=== PATIENT | female | born 1980 ===

== ENCOUNTER 2018-11-26 01:39 | Observation (INO) ==
[2018-11-26 02:46] LABS: Basophils % 0.2 %; Eosinophils # 0.6 K/mcL (0.0-0.6); Eosinophils % 4.7 %; Hematocrit 36.2 % (35.3-44.9); Hemoglobin 11.9 g/dL (11.5-15.4); Immature Granulocytes % 0.5 % (0-4); Lymphocytes # 4.4 K/mcL (0.6-4.6); Lymphocytes % 37.1 %; Mean Corpuscular HGB Conc 32.9 g/dL (31.6-35.5); Mean Corpuscular Hemoglobin 29.7 pg (28.0-33.3); Mean Corpuscular Volume 90.3 fL (83.0-100.0); Mean Platelet Volume 9.3 fL (9.4-12.4); Monocytes # 0.9 K/mcL (0.0-1.3); Monocytes % 7.9 %; Neutrophils # 5.9 K/mcL (1.6-8.9); Platelet Count 388 K/mcL (140-400); Red Blood Count 4.01 M/mcL (3.82-4.97); Red Cell Distribution Width 12.9 % (11.5-14.5); Segmented Neutrophils % 49.6 %
[2018-11-26 03:12] LABS: Alanine Aminotransferase 17 Units/L (7-52); Albumin 4.1 g/dL (3.5-5.7); Albumin/Globulin Ratio 1.5 (1.1-2.2); Alkaline Phosphatase 99 Units/L (34-104); Aspartate Amino Transferase 21 Units/L (13-39); BUN/Creatinine Ratio 13 (6-26); Bilirubin,Total 0.2 mg/dL (0.3-1.0); Blood Urea Nitrogen 7 mg/dL (6-20); Calcium 8.8 mg/dL (8.6-10.3); Carbon Dioxide 24 mEq/L (23-29); Chloride 102 mEq/L (98-107); Globulin 2.8 g/dL (2.4-3.5); Glucose 110 mg/dL (70-105); Osmolality,Calculated 281 (280-300); Potassium 3.6 mEq/L (3.5-5.1); Sodium 136 mEq/L (136-145); Total Protein 6.9 g/dL (6.4-8.9); Troponin I < 0.03 ng/mL (< 0.04); eGFR For African Americans > 60 (> 60); eGFR For Non-African Americans > 60 (> 60)
[2018-11-26] MEDS ORDERED: hydrALAZINE 10 MG TABLET PO PRN (03:13)
[2018-11-26] MEDS ORDERED: Nitroglycerin 0.4 MG TAB.SUBL SL PRN (03:15)
[2018-11-26] MEDS ORDERED: *HR* OxyCODONE Immed Rel 5 MG TABLET PO PRN (03:16)
[2018-11-26] MEDS ORDERED: Acetaminophen 325 MG TABLET PO PRN (03:16)
[2018-11-26] MEDS ORDERED: Naloxone 0.4 MG/ML INJ IVP PRN (03:16)
[2018-11-26] MEDS ORDERED: *HR* Promethazine 25 MG/ML VIAL IVP PRN (03:16)
[2018-11-26] MEDS ORDERED: Ipratropium/Albuterol Neb 3 ML IH PRN ×2 (03:21→04:12)
[2018-11-26] MEDS ORDERED: tiZANidine 4 MG TABLET PO ONE ×2 (03:23→06:15)
--- NOTE | 2018-11-26 04:09 | Internal Med History&Physical ---
Date of Encounter: 11/26/18 Time of Encounter: 02:30 Internal Medicine - H&P: HPI Chief complaint: CP Admitted From: Intrahospital Transfer Plans for Post Hospital Care: Home History of present illness: Ms. Lennon is a 38 year old female w/PMH of asthma, HTN, HLD, migraines, anxiety, depression, and current tobacco abuse presents from [facility] ED with CC of CP for the past three days. Patient states that the pain has been intermittent and presents as burning in the center of her chest w/o radiation. Sx come on w/wo exertion. Associated sx: High heart rate, high blood pressure, dizziness, nausea, vomiting, diaphoresis, dizziness, headache, and SOB. Patient denies previous occurrence. No recent cardiac w/u. Patient reports she has not been feeling well for the past several days. WBC slightly elevated on admission. Patient denies recent illness, fever, chills, changes in vision, unusual bleeding, abdominal pain, diarrhea, constipation, numbness, tingling, pre- syncope, or syncope. Past Med Surg Social Fam HX - Past Medical History Source: patient, old records reviewed Medical history: asthma, hyperlipidemia, hypertension, migraine Additional medical history: chronic sinusitis. depression. lumbar DDD L4/5 L5/S1. disc protrusion L4/5. right knee arthritis Psychiatric history: anxiety, depression - Past Surgical History Surgical History: cholecystectomy, hysterectomy, sinus surgery, LOLIS/BSO, AICD Additional surgical history: Right Knee Scope. Back - Social History Smoking Status: Current every day smoker Packs per day: 0.5 PPD Smokeless Tobacco Status: No Alcohol use: rarely Drug use: none Current living situation: Home Activity Level: Independent ambulation Recent Out of Country Travel Within the Last 8 Weeks: No Exposure or Possible Exposure to Illness During Travel: No - Family History Maternal Grandmother Race: Family Member Ethnicity: Non- Living Status: Hx Family Cancer: Yes (Thyroid) Maternal Grandfather Race: Family Member Ethnicity: Non- Living Status: Hx Family Cancer: Yes (Leukemia) Paternal Grandmother Race: Family Member Ethnicity: Non- Living Status: Hx Family Cancer: Yes (Pancreatic) Father Race: Family Member Ethnicity: Non- Living Status: Still Living Hx Family Medical Disorders: No Mother Race: Family Member Ethnicity: Non- Living Status: Still Living Hx Family Cardiac Disorders: Yes (HTN, HLD, Aortic valve replacement) Sister Race: Family Member Ethnicity: Non- Living Status: Still Living Hx Family Cardiac Disorders: Yes (HTN) Hx Family Neurologic Disorders: Yes (Migraines) Internal Medicine - H&P: Meds Lisinopril [Zestril] 20 mg PO HS 08/15/17 [History] Estradiol 2 mg PO QAM 01/16/18 [History] Cholecalciferol (Vitamin D3) [Vitamin D3] 1,000 units PO QAM 10/07/18 [History] Gabapentin [Neurontin] 300 mg PO BID 10/07/18 [History] SUMAtriptan succinate [Imitrex] 50 mg PO PRN PRN 10/07/18 [History] Trazodone HCl 100 mg PO HS 10/07/18 [History] Venlafaxine HCl [Venlafaxine HCl ER] 150 mg PO QPM 10/07/18 [History] Acetaminophen [Non-Aspirin Extra Strength] 500 mg PO Q6H PRN 7 Days #28 tablet 10/08/18 [Rx] HYDROcodone/Acet 5/325 mg [[place] 5-325 mg] 1 tab PO BID PRN 11/25/18 [History] Ipratropium/Albuterol Neb [Duoneb] 3 ml IH Q6HR PRN 11/26/18 [History] Allergy/AdvReac Type Severity Reaction Status Date / Time Banana Allergy Rash Verified 11/25/18 20:01 Sulfa (Sulfonamide Allergy Rash, Verified 11/25/18 20:01 Antibiotics) Vomiting, Headache, Blotchy skin All Systems PM: A 10-system review of systems was performed and is negative for pertinent findings except as documented above in the HPI. - Constitutional Constitutional: as per HPI, no chills, no fever(s), no night sweats - EENT Eyes: no change in vision, no discharge, no pain, no photophobia Ears: no ear discharge, no ear pain, no tinnitus Nose, mouth and throat: no dysphagia, no nasal discharge, no neck pain, no sore throat - Breasts Breasts: as per HPI - Cardiovascular Cardiovascular ROS IM: as per HPI, chest pain, diaphoresis, dyspnea, dyspnea on exertion, lightheadedness, no palpitations, no syncope - Respiratory Respiratory: as per HPI, dyspnea, dyspnea on exertion, no cough, no wheezing, no excessive phlegm production - Gastrointestinal Gastrointestinal: as per HPI, heartburn, nausea, vomiting, no abdominal pain, no diarrhea, no hematemesis, no hematochezia, no melena - Genitourinary Genitourinary: no change in urinary stream, no dysuria, no flank pain, no hematuria Menstruation: as per HPI, post hysterectomy - Musculoskeletal Musculoskeletal ROS IM: no numbness, no tingling - Integumentary Integumentary IM: no rash, no unusual bruising - Neurological Neurological ROS: as per HPI, headache(s), no confusion, no convulsions, no focal weakness, no numbness, no tingling, no tremor(s) - Psychiatric Psychiatric: as per HPI, anxiety, depression - Endocrine Endocrine IM: as per HPI - Hematologic/Lymphatic Hematologic/Lymphatic: no easy bruising - Allergic/Immunologic Allergic/Immunologic: as per HPI - Constitutional Vitals: Temp Pulse Resp BP Pulse Ox 98.3 F 96 18 145/79 94 11/26/18 03:59 11/26/18 03:59 11/26/18 03:59 11/26/18 03:59 11/26/18 03:59 General appearance: Present: cooperative, mild distress, A&O X 3, morbidly obese, pleasant, answers questions appropriately Exam: Patient examined at bedside. Patient resting in bed. Denies any chest discomfort on exam as well as any other sx or complaints. VS: 98.3F temp, HR 86, RR 14, BP 156/91, SPO2 98% on room air. - Head Head exam: Present: atraumatic, normocephalic - Eye Eye exam: Present: PERRL, conjuntiva pink, sclera anicteric Pupils: Present: PERRL - ENT ENT exam: Present: normal exam - Neck Neck exam general surgery: Present: normal inspection, supple, trachea midline. Absent: lymphadenopathy - Respiratory Respiratory exam: Present: CTAB. Absent: accessory muscle use, rales, rhonchi, wheezes - Cardiovascular Cardiovascular exam: Present: RRR, +S1, +S2. Absent: diastolic murmur, gallop, rubs, systolic murmur - GI/Abdominal GI/Abdominal exam: Present: normal bowel sounds, soft, no peritoneal signs. Absent: distended, tenderness - Rectal Rectal exam: Present: deferred - Additional comments: exam deferred. - Extremities Exam Extremities exam: Present: warm, radial pulses palpable and symmetrical. Absent: calf tenderness, cyanotic, pedal edema - Back Exam Back exam: Present: normal inspection - Neurological Exam Neurological exam: Present: alert, CN II-XII intact, oriented X3, no focal deficits. Absent: pronater drift, facial droop, speech deficit - Psychiatric Psychiatric exam: Present: normal affect, normal mood - Skin Skin exam: Present: dry, intact Internal Med - H&P Results - Labs CBC & Chem 7: 11/26/18 02:35 11/26/18 02:08 Labs: Short CBC 11/26/18 Range/Units 02:35 WBC 12.0 H (4.3-11.1) K/mcL Hgb 11.9 (11.5-15.4) g/dL Hct 36.2 (35.3-44.9) % Plt Count 388 (140-400) K/mcL Neutrophils # 5.9 (1.6-8.9) K/mcL BMP 11/26/18 02:08 Sodium 136 Potassium 3.6 Chloride 102 Carbon Dioxide 24 BUN 7 Creatinine 0.54 L Glucose 110 H Calcium 8.8 Cardiac Enzymes 11/26/18 Range/Units 02:08 Troponin I < 0.03 (< 0.04) ng/mL Liver Function 11/26/18 Range/Units 02:08 Total Bilirubin 0.2 L (0.3-1.0) mg/dL AST 21 (13-39) Units/L ALT 17 (7-52) Units/L Alkaline Phosphatase 99 (34-104) Units/L Albumin 4.1 (3.5-5.7) g/dL - Diagnostic Studies Chest x-ray Additional comments: EXAMINATION: ONE XRAY VIEW OF THE CHEST 11/25/2018 8:33 pm COMPARISON: October 08, 2018 HISTORY: ORDERING SYSTEM PROVIDED HISTORY: chest pain FINDINGS: The lungs are clear there is no infiltrate effusion or pneumothorax. The cardiac silhouette is normal. There are no bony abnormalities seen. XR/XR chest 1V portable IMPRESSION: Normal chest x-ray D/ / Adarsh Butler MD / Adarsh Butler MD Interpreting Provider: Adarsh Butler MD CT scan - chest Additional comments: EXAMINATION: CTA OF THE CHEST 11/25/2018 9:23 pm TECHNIQUE: CTA of the chest was performed after the administration of intravenous contrast. Multiplanar reformatted images are provided for review. MIP images are provided for review. Dose modulation, iterative reconstruction, and/or weight based adjustment of the mA/kV was utilized to reduce the radiation dose to as low as reasonably achievable. COMPARISON: Chest radiograph 11/25/2018. HISTORY: ORDERING SYSTEM PROVIDED HISTORY: CP 75 ml of Isovue 370 Initial encounter. FINDINGS: Pulmonary Arteries: The main pulmonary artery is normal in caliber. The pulmonary arteries are adequately opacified for evaluation. No pulmonary embolism. Mediastinum: The thoracic aorta is normal in caliber with mild atherosclerotic vascular disease. The coronary arteries and branch vessels of the superior mediastinum and lower neck are unremarkable. The heart is normal in size. No pericardial effusion. The mediastinal esophagus and visualized portions of the thyroid gland are unremarkable. No lymphadenopathy. Lungs/pleura: The central airways are patent. No pleural effusion or pneumothorax. No consolidation or interlobular septal thickening. Upper Abdomen: Diffuse hepatic steatosis. Status post cholecystectomy. Limited images through the upper abdomen demonstrate no acute process. Soft Tissues/Bones: No acute bone or soft tissue abnormality. CT/CT angio chest IMPRESSION: 1. No evidence of pulmonary embolism or other acute process in the chest. 2. Diffuse hepatic steatosis. D/ / Jan Ling MD / Jan Ling MD Interpreting Provider: Jan Ling MD - Assessment and Plan (1) Chest pain Current Visit: Yes Status: Acute Assessment and plan: Acute CP for the past three days. Patient states that the pain has been intermittent and presents as burning in the center of her chest w/o radiation. Sx come on w/wo exertion. Associated sx: High heart rate, high blood pressure, dizziness, nausea, vomiting, diaphoresis, dizziness, headache, and SOB. Patient denies previous occurrence. No recent cardiac w/u. Patient reports she has not been feeling well for the past several days. 324 mg ASA in [place] ED. SL nitro PRN. 80 mg Lipitor ONCE. Initial troponin <0.03. Trending. Echocardiogram. NPO now. Nuclear stress test ordered for a.m. if troponins remain WNL. Consider Cardiology consult if troponins, Echocardiogram, and/or stress test results abnormal. Patient is high risk for cardiac event d/t current unstable angina for three days, familial hx of cardiac disease (mother), no recent cardiac w/u requiring Echocardiogram and nuclear stress tests; and current risk factors of HLD, HTN, current tobacco abuse, and morbid obesity. Observation. Qualifiers: Chest pain type: other chest pain Qualified Code(s): R07.89 - Other chest pain; R07.8 - Other chest pain (2) Elevated d-dimer Current Visit: Yes Status: Acute Assessment and plan: Acutely elevated D-dimer of 1032 at [place] [facility]. CTA of the chest negative for PE. Bilateral Dopplers of the LEs ordered to r/o DVT(s). Heparin SQ for DVT prophylaxis. (3) Leukocytosis Current Visit: Yes Status: Acute Assessment and plan: Acute and mild leukocytosis. Likely reactive as there is no identifiable infection source. Stat U/A w/reflex micro and culture and stat respiratory infection panel ordered. Monitor pt. and f/u labs. Qualifiers: Leukocytosis type: unspecified Qualified Code(s): D72.829 - Elevated white blood cell count, unspecified (4) HTN (hypertension) Current Visit: Yes Status: Chronic Assessment and plan: Hx of chronic HTN. Monitor pt. and VS. Continue pts. Lisinopril. Qualifiers: Hypertension type: essential hypertension Qualified Code(s): I10 - Essential (primary) hypertension (5) HLD (hyperlipidemia) Current Visit: Yes Status: Chronic Assessment and plan: Hx of chronic HLD. Lipid panel ordered. Patient does not currently take a statin. Consider adding a statin based on panel results if warranted. Qualifiers: Hyperlipidemia type: pure hypercholesterolemia Qualified Code(s): E78.00 - Pure hypercholesterolemia, unspecified; E78.0 - Pure hypercholesterolemia (6) Migraines Current Visit: Yes Status: Chronic Assessment and plan: Hx of chronic migraines. Continue patient's Imitrex 50 mg by mouth when necessary. Qualifiers: Migraine type: without aura Status migrainosus presence: without status migrainosus Intractability: not intractable Qualified Code(s): G43.009 - Migraine without aura, not intractable, without status migrainosus (7) Asthma Current Visit: Yes Status: Chronic Assessment and plan: Hx of chronic intermittent asthma. Continue patient's DuoNeb's when necessary. Supplemental O2 with titration and SPO2 monitoring. Qualifiers: Asthma severity: mild Asthma persistence: intermittent Asthma complication type: unspecified Qualified Code(s): J45.20 - Mild intermittent asthma, uncomplicated (8) Anxiety and depression Current Visit: Yes Status: Chronic Assessment and plan: Hx of chronic anxiety and depression. Continue patient's trazodone and venlafaxine. (9) Tobacco dependence Current Visit: Yes Status: Chronic Assessment and plan: Hx of chronic tobacco abuse. Pt. reports she currently smokes 1/2 PPD. Denies need for nicotine patch. (10) DVT prophylaxis Current Visit: Yes Status: Acute Assessment and plan: Heparin SQ 5,000 units Q8HR for DVT prophylaxis. - Time Spent With Patient Total time spent is greater than 50% in coordination of care (as documented) at patient's floor/unit and/or counseling patient: Greater than 35 minutes
[2018-11-26 04:32] LABS: Adenovirus Not Detected (Not Detect); Bordetella Pertussis Not Detected (Not Detect); Chlamydophila pneumoniae Not Detected (Not Detect); Coronavirus 229E Not Detected (Not Detect); Coronavirus HKU1 Not Detected (Not Detect); Coronavirus NL63 Not Detected (Not Detect); Coronavirus OC43 Not Detected (Not Detect); Human Metapneumovirus Not Detected (Not Detect); Human Rhinovirus/Enterovirus Not Detected (Not Detect); Influenza A Subtype 2009 H1 Not Detected (Not Detect); Influenza A Untypeable Not Detected (Not Detect); Influenza B Not Detected (Not Detect); Mycoplasma pneumoniae Not Detected (Not Detect); Parainfluenza Virus 1 Not Detected (Not Detect); Parainfluenza Virus 2 Not Detected (Not Detect); Parainfluenza Virus 3 Not Detected (Not Detect); Parainfluenza Virus 4 Not Detected (Not Detect); Respiratory Syncytial Virus Not Detected (Not Detect)
[2018-11-26] MEDS ORDERED: Regadenoson 0.4 MG/5 ML SYRINGE IVP ONE (06:14)
--- NOTE | 2018-11-26 10:32 | Event Note ---
<Celso Garner - Last Filed: 11/26/18 13:47> Date of Encounter: 11/26/18 Time of Encounter: 10:10 HPI: Pt is 38 year old female AOx3 in no acute distress. Patient has been having 3 days of intermittent chest pain described as burning in the center of the chest. Reports the pain is worse than her usual indigestion, and associated with diaphoresis, nausea, tachycardia, cough and SOB. Chest pain is not present at this time. Denies any fever, chills, sore throat, constipation, diarrhea, vomiti ng, wheezing, painful urination, increased frequency, or LE edema. Physical Exam: Gen: AOx3 Eyes:SAVANAH with EOMI sruthi. No evidence of conjunctiva or scleral icterus. Throat: Mucous membranes moist and pink. No pharyngeal erythema or tonsilar exudate. Mouth without any sores. CV: RRR with no murmurs Resp: CTA in all lung solitario with no rhales, wheeze Abdomen: Ext: Tenderness in right LE with over lying scab, pain likely due to trauma. DP 2/4 sruthi with no LE edema Neuro:CN II-XII with no focal deficits. Strength 4/5 in upper and lower extremity. Derm: Assessment and Plan 1.) Chest pain -Acute CP for the past three days. Patient is high risk for cardiac event d/t current unstable angina for three days, familial hx of cardiac disease (mother), current risk factors of HLD, HTN, VELASQUEZ, estradiol and current tobacco abuse, and morbid obesity. -Nuclear stress test performed 11/26. Plan: -Consider Cardiology consult if stress test results abnormal. - Echocardiogram ordered -Patient non compliant with home CPAP, will require follow up on discharge 2.) Elevated D dimer -Acutely elevated D-dimer of 1032 at [facility] ED -risk factors of estradiol raise concern for clotting. -CTA of the chest negative for PE. -Bilateral Doppler of the LEs preliminary report negative. Plan: -Heparin SQ for DVT prophylaxis. -continue to check LE for signs of DVT - Await official doppler report 3.) Leukocytosis -Acute and mild leukocytosis. Likely reactive as there is no identifiable infection source. -U/A w/reflex micro and culture and respiratory infection panel negative. Plan: -Follow cbc and monitor signs of infection - U/A culture pending 4.) HTN -Hx of chronic HTN. Monitor pt. and VS. Plan -Continue Lisinopril 5.) Hyperlipidemia -Hx of chronic HLD. - Lipid panel ordered Plan -Per lipid panel May 2016 ASCVD risk recommends high intensity statin 40 mg Atorvaststin 6.) Migraine -Hx of chronic migraines. Plan: -Continue patient's Imitrex 50 mg by mouth when necessary. 7.) Asthma -Hx of chronic intermittent asthma. Plan -Continue patient's DuoNeb's when necessary. 8.) Anxiety -Hx of chronic anxiety and depression. Plan -Continue patient's trazodone and venlafaxine. 9.) Tobacco Dependence -Hx of chronic tobacco abuse. Pt. reports she currently smokes 1/2 PPD. Denies need for nicotine patch. Plan -Discuss smoking cessation and provide resources on discharge 10.) DVT Prophylaxis Plan -Heparin SQ 5,000 units Q8HR for DVT prophylaxis. <Adriana Koch - Last Filed: 11/26/18 17:24> Date of Encounter: 11/26/18 I saw evaluated and examined this patient and reviewed objective data including labs and my medical decision-making was reviewed with the medical student. I agree with the documented findings, disposition and treatment plan as described except to any changes set forth below. We independently had [id number] contact with the patient. 38 year old female with history of htn, tobacco abuse, HPL presents as a transfer from [facility] for cardiac workup. Patient complained of several day history of chest pain. EKG and initial troponin negative. D-dimer at [facility] elevated so a CTA done that was negative for PE. Patient is in no acute distress on exam, cardiac ausculation normal, lung ausculation normal. VS: reviewed, labs: reviewed. Plan for nuclear stress test and echocardiogram.
[2018-11-26] MEDS: Cholecalciferol (D-3) 1,000 UNIT (25MCG) TABLET PO SCH (10:46)
[2018-11-26] MEDS: Aspirin Enteric Coated 81 MG Tablet PO SCH (10:47)
[2018-11-26] MEDS: Gabapentin 300 MG CAPSULE PO SCH ×2 (10:47→20:35)
[2018-11-26 11:40] LABS: Troponin I < 0.03 ng/mL (< 0.04)
[2018-11-26] MEDS: *HR* HYDROcodone/Acet 5/325 mg TABLET PO PRN ×2 (13:37→20:35)
[2018-11-26 14:13] LABS: Bilirubin,Urine Negative (Negative); Blood,Urine Small (Negative); Clarity,Urine Cloudy (Clear); Color,Urine Yellow (Yellow); Glucose,Urine (UA) Normal (Normal); Ketones,Urine Negative (Negative); Leukocyte Esterase,Urine Negative (Negative); Nitrite,Urine Negative (Negative); Protein,Urine Negative (Neg-Trace); Specific Gravity,Urine 1.016 (1.010-1.025); Urobilinogen,Urine Normal (Normal)
[2018-11-26 14:15] LABS: Bacteria,Urine Moderate per hpf (None-Few); Hyaline Casts,Urine None Seen per lpf (None-Few); RBC,Urine 0-3 per hpf (0-3); Squamous Epithelial Cell,Urine Many per lpf (None-Few)
[2018-11-26 14:30] LABS: Triglycerides 184 mg/dL (< 150)
[2018-11-26 14:31] LABS: Chol/HDL Ratio 6.5 (0-4.9); Cholesterol 292 mg/dL (< 200); HDL Cholesterol 45 mg/dL (40-59); LDL Cholesterol,Calculated 210 mg/dL (0-99)
--- NOTE | 2018-11-26 14:49 | Electrocardiograph Report ---
[address] [place], [place] [address] Test Date: 2018-11-26 Pat Name: Leidy Lennon Department: 112 Room: 2A43 Gender: F [employer]nequin [employer] Maker: : 1980 Requested By: José Manuel Arriaga Order Number: [id number] Reading MD: Jan Napoles Measurements Intervals [place] Rate: 94 P: 54 NH: 187 QRS: 30 QRSD: 91 T: 39 QT: 354 QTc: 405 Interpretive Statements SINUS RHYTHM POSSIBLE LEFT ATRIAL ENLARGEMENT POOR R WAVE PROGRESSION Electronically Signed On 11-26-2018 14:47:41 EDT by Jan Napoles
[2018-11-26] MEDS ORDERED: Perflutren Lipid Microsphere 1.3 ML in 0.9 % Sodium Chloride 8.7 ML IVP ONE (14:50)
[2018-11-26] MEDS ORDERED: *HR* Metoprolol 5 MG/5 ML VIAL IVP ONE (16:38)
[2018-11-26] MEDS: *HR* Heparin 5,000 UNIT/ML VIAL SQ SCH ×2 (16:55→22:51)
[2018-11-26] MEDS ORDERED: Venlafaxine XR (24 HR) 150 MG CAP.ER.24H PO SCH (18:00)
[2018-11-26] MEDS ORDERED: *HR* Metoprolol 5 MG/5 ML VIAL IVP PRN (18:58)
[2018-11-26] MEDS ORDERED: traZODone 50 MG TABLET PO SCH (21:00)
[2018-11-26] MEDS ORDERED: Lisinopril 20 MG TABLET PO SCH (21:00)
[2018-11-27] MEDS: *HR* Heparin 5,000 UNIT/ML VIAL SQ SCH ×2 (05:46→12:52)
[2018-11-27 06:55] LABS: Basophils % 0.1 %; Eosinophils # 0.4 K/mcL (0.0-0.6); Eosinophils % 3.7 %; Hematocrit 38.5 % (35.3-44.9); Hemoglobin 12.3 g/dL (11.5-15.4); Immature Granulocytes % 0.4 % (0-4); Lymphocytes # 3.2 K/mcL (0.6-4.6); Lymphocytes % 30.9 %; Mean Corpuscular HGB Conc 31.9 g/dL (31.6-35.5); Mean Corpuscular Volume 93.9 fL (83.0-100.0); Mean Platelet Volume 9.6 fL (9.4-12.4); Monocytes # 0.7 K/mcL (0.0-1.3); Platelet Count 413 K/mcL (140-400); Segmented Neutrophils % 57.9 %; White Blood Count 10.4 K/mcL (4.3-11.1)
[2018-11-27 07:57] LABS: BUN/Creatinine Ratio 19 (6-26); Blood Urea Nitrogen 8 mg/dL (6-20); Carbon Dioxide 23 mEq/L (23-29); Chloride 104 mEq/L (98-107); Glucose 107 mg/dL (70-105); Osmolality,Calculated 287 (280-300); Potassium 4.1 mEq/L (3.5-5.1); Sodium 139 mEq/L (136-145); Thyroid Stimulating Hormone 0.976 mcIU/mL (0.340-5.600); eGFR For African Americans > 60 (> 60); eGFR For Non-African Americans > 60 (> 60)
[2018-11-27] MEDS: Gabapentin 300 MG CAPSULE PO SCH (08:35)
[2018-11-27] MEDS: Cholecalciferol (D-3) 1,000 UNIT (25MCG) TABLET PO SCH (08:35)
[2018-11-27] MEDS: Aspirin Enteric Coated 81 MG Tablet PO SCH (08:35)
[2018-11-27] MEDS: *HR* HYDROcodone/Acet 5/325 mg TABLET PO PRN (08:40)
--- NOTE | 2018-11-27 08:52 | Internal Med Progress Note ---
<Celso Garner R - Last Filed: 11/27/18 08:47> Hospitalist Progress Note - Encounter Date of Encounter: 11/27/18 Time of Encounter: 08:48 - Subjective Interval History: Pt is 38 year old female AOx3 in no acute distress. Patient has been having 3 days of intermittent chest pain described as burning in the center of the chest. Reports the pain is worse than her usual indigestion, and associated with diaphoresis, nausea, tachycardia, cough and SOB. Chest pain and associated symptoms not present during hospitalization. Denies any fever, chills, sore throat, constipation, diarrhea, vomiting, SOB, wheezing, painful urination, i ncreased frequency, or LE edema. - Exam Vitals: Temp Pulse Resp BP Pulse Ox 97.7 F 88 16 168/96 96 11/27/18 07:42 11/27/18 07:42 11/27/18 07:42 11/27/18 07:42 11/27/18 04:31 Exam: Gen: AOx3 in no acute distress Eyes:SAVANAH with EOMI sruthi. No evidence of conjunctiva or scleral icterus. Throat: Mucous membranes moist and pink. No pharyngeal erythema or tonsilar exudate. Mouth without any sores. CV: RRR with no murmurs Resp: CTA in all lung solitario with no rhales, wheeze Abdomen: soft and non-tender abdomen with no organomegally, or masses palpated Ext:Tenderness in right carrera with over lying scab, pain likely due to trauma. Pain in right knee unchanged. DP 2/4 sruthi with no LE edema. Neuro:CN II-XII with no focal deficits. Strength 4/5 in upper and lower extremity. Derm:skin warm with good turgor. No rash or erythema visualized on exam. - Assessment and Plan (1) Chest pain Current Visit: Yes Status: Acute Assessment and Plan: -Acute CP for the past three days. - Patient is high risk for cardiac event d/t current unstable angina for three days, familial hx of cardiac disease (mother), current risk factors of HLD, HTN, VELASQUEZ, estradiol, recent surgery and current tobacco abuse, and morbid obesity. - Nuclear stress test performed 11/26 - Echocardiogram performed 11/26 LVEF 60-65% Mild L ventricular dystolic dysfunction Normal R ventricular fumction No valvular dysfunction No pulmonry HTN Plan: - Patient non-compliant with home CPAP, will recquire follow up on discharge (2) Elevated d-dimer Current Visit: Yes Status: Acute Assessment and Plan: -Acutely elevated D-dimer of 1032 at [place] [facility] -risk factors of estradiol raise concern for clotting. -CTA of the chest negative for PE. -Bilateral Doppler of the LEs preliminary report negative. Plan: -Heparin SQ for DVT prophylaxis. -continue to check LE for signs of DVT - Await official doppler report (3) Leukocytosis Current Visit: Yes Status: Acute Assessment and Plan: -Acute and mild leukocytosis. Likely reactive as there is no identifiable infection source. -U/A w/reflex micro and culture and respiratory infection panel negative. -WBC down to 10.4 on 11/27 from 12.0 Plan: -Follow cbc and monitor signs of infection - U/A culture pending (4) HTN (hypertension) Current Visit: Yes Status: Chronic Assessment and Plan: -Hx of chronic HTN Plan: -Continue Lisinopril and follow up with PCP on 12/08 - Continue to monitor vital signs (5) HLD (hyperlipidemia) Current Visit: Yes Status: Chronic Assessment and Plan: -Hx of chronic HLD - Lipid panel ordered Plan -Per lipid panel ASCVD risk recommends high intensity statin 40 mg Atorvaststin daily (6) Migraines Current Visit: Yes Status: Chronic Assessment and Plan: -Hx of chronic migraines. Plan: -Continue patient's Imitrex 50 mg by mouth when necessary. (7) Asthma Current Visit: Yes Status: Chronic Assessment and Plan: -Hx of chronic intermittent asthma. Plan -Continue patient's DuoNeb's when necessary. (8) Anxiety and depression Current Visit: Yes Status: Chronic Assessment and Plan: -Hx of chronic anxiety and depression -Reports recent increased stressors Plan -Continue patient's trazodone and venlafaxine (9) Tobacco dependence Current Visit: Yes Status: Chronic Assessment and Plan: -Hx of chronic tobacco abuse. Pt. reports she currently smokes 1/2 PPD -Denies need for nicotine patch. Plan -Discuss smoking cessation and provide resources on discharge DVT Prophylaxis: -Heparin SQ 5,000 units Q8HR for DVT prophylaxis. - Time Spent with Patient Total time spent is greater than 50% in coordination of care (as documented) at patient's floor/unit and/or counseling patient: Plan of Care Discussed with: patient Internal Medicine: Result - Labs CBC & Chem 7: 11/27/18 06:25 11/27/18 06:25 Labs: Short CBC 11/27/18 Range/Units 06:25 WBC 10.4 (4.3-11.1) K/mcL Hgb 12.3 (11.5-15.4) g/dL Hct 38.5 (35.3-44.9) % Plt Count 413 H (140-400) K/mcL Neutrophils # 6.0 (1.6-8.9) K/mcL BMP 11/27/18 06:25 Sodium 139 Potassium 4.1 Chloride 104 Carbon Dioxide 23 BUN 8 Creatinine 0.43 L Glucose 107 H Calcium 9.0 Cardiac Enzymes 11/26/18 Range/Units 10:41 Troponin I < 0.03 (< 0.04) ng/mL Urine 11/26/18 Range/Units 13:55 Urine Color Yellow (Yellow) Urine Clarity Cloudy A (Clear) Urine pH 6.0 (5.0-8.0) pH Units Ur Specific [place] 1.016 (1.010-1.025) Urine Protein Negative (Neg-Trace) mg/dL Urine Glucose (UA) Normal (Normal) mg/dL - Impressions Impressions Echocardiogram 11/26/18 03:12 Impressions: LVEF 60-65%. Mild left ventricular diastolic dysfunction. Definity echo contrast was used. Normal right ventricular structure and function. No significant valvular dysfunction. No pulmonary hypertension. Left Ventricular Wall Motion: Rest Echo Findings All wall segments showed normal motion. Findings: Study Quality * Technically adequate exam. ECG Findings * Normal sinus rhythm. Left Ventricle * LVEF 60-65%. * Normal LV chamber size, wall thickness and function. * Mild left ventricular diastolic dysfunction. * Definity echo contrast was used. Right Ventricle * Normal right ventricular structure and function. Left Atrium * Normal left atrial size. Right Atrium * Normal right atrial size. Mitral Valve * Normal mitral valve structure. * No mitral stenosis. * Trace mitral regurgitation. Aortic Valve * No aortic regurgitation. * Aortic valve not well visualized. * No aortic stenosis. Tricuspid Valve * Tricuspid valve not well visualized. * No tricuspid regurgitation. Pulmonic Valve * Pulmonic valve is not well visualized. * No pulmonic stenosis. * No pulmonic regurgitation. Pulmonary Artery * Pulmonary artery not well visualized. Aorta * Normally sized aortic root. Pericardium * There is no pericardial effusion present. Interatrial Septum * Interatrial septum not well evaluated. IVC * The IVC is not well evaluated. Consult Discharge Plan - Plan Referrals: Nickie Caputo CNP [Primary Care Provider] - <ErasmomiriamSharla lauul Pranavjulissa - Last Filed: 11/27/18 14:53> Hospitalist Progress Note - Encounter Date of Encounter: 11/27/18 - Exam Vitals: Temp Pulse Resp BP Pulse Ox 97.7 F 93 18 130/80 96 11/27/18 14:37 11/27/18 14:37 11/27/18 14:37 11/27/18 14:37 11/27/18 14:37 - Assessment and Plan (1) Asthma Current Visit: Yes Status: Chronic (2) Tobacco dependence Current Visit: Yes Status: Chronic (3) Chest pain Current Visit: Yes Status: Inactive (4) Elevated d-dimer Current Visit: Yes Status: Acute (5) HTN (hypertension) Current Visit: Yes Status: Chronic (6) HLD (hyperlipidemia) Current Visit: Yes Status: Chronic (7) Migraines Current Visit: Yes Status: Chronic (8) DVT prophylaxis Current Visit: Yes Status: Acute (9) Anxiety and depression Current Visit: Yes Status: Chronic (10) Leukocytosis Current Visit: Yes Status: Acute - Time Spent with Patient Total time spent is greater than 50% in coordination of care (as documented) at patient's floor/unit and/or counseling patient: Internal Medicine: Result - Labs CBC & Chem 7: 11/27/18 06:25 11/27/18 06:25 Labs: Short CBC 11/27/18 Range/Units 06:25 WBC 10.4 (4.3-11.1) K/mcL Hgb 12.3 (11.5-15.4) g/dL Hct 38.5 (35.3-44.9) % Plt Count 413 H (140-400) K/mcL Neutrophils # 6.0 (1.6-8.9) K/mcL BMP 11/27/18 06:25 Sodium 139 Potassium 4.1 Chloride 104 Carbon Dioxide 23 BUN 8 Creatinine 0.43 L Glucose 107 H Calcium 9.0 - Impressions Impressions Echocardiogram 11/26/18 03:12 Impressions: LVEF 60-65%. Mild left ventricular diastolic dysfunction. Definity echo contrast was used. Normal right ventricular structure and function. No significant valvular dysfunction. No pulmonary hypertension. Left Ventricular Wall Motion: Rest Echo Findings All wall segments showed normal motion. Findings: Study Quality * Technically adequate exam. ECG Findings * Normal sinus rhythm. Left Ventricle * LVEF 60-65%. * Normal LV chamber size, wall thickness and function. * Mild left ventricular diastolic dysfunction. * Definity echo contrast was used. Right Ventricle * Normal right ventricular structure and function. Left Atrium * Normal left atrial size. Right Atrium * Normal right atrial size. Mitral Valve * Normal mitral valve structure. * No mitral stenosis. * Trace mitral regurgitation. Aortic Valve * No aortic regurgitation. * Aortic valve not well visualized. * No aortic stenosis. Tricuspid Valve * Tricuspid valve not well visualized. * No tricuspid regurgitation. Pulmonic Valve * Pulmonic valve is not well visualized. * No pulmonic stenosis. * No pulmonic regurgitation. Pulmonary Artery * Pulmonary artery not well visualized. Aorta * Normally sized aortic root. Pericardium * There is no pericardial effusion present. Interatrial Septum * Interatrial septum not well evaluated. IVC * The IVC is not well evaluated. - Attending Attestation I saw evaluated and examined this patient and reviewed objective data including labs and my medical decision-making was reviewed with the Resident Physician and medical student. I agree with the documented findings, disposition and treatment plan as described except to any changes set forth below. We independently had [id number] contact with the patient. No acute events. No complaints. Physical exam, no acute distress, cardiac RRR, lungs CTAB. VS: reviewed, hypertensive. Labs: reviewed, unremarkable. Chest pain: stress test negative, CTA negative, echocardiogram unremarkable. likely not cardiac in nature. Okay for discharge home with PCP follow-up. <Celso Garner Last Filed: 11/27/18 08:47> (3) Leukocytosis Qualifiers: Leukocytosis type: unspecified Qualified Code(s): D72.829 - Elevated white bl ood cell count, unspecified (4) HTN (hypertension) Qualifiers: Hypertension type: essential hypertension Qualified Code(s): I10 - Essential (primary) hypertension (5) HLD (hyperlipidemia) Qualifiers: Hyperlipidemia type: pure hypercholesterolemia Qualified Code(s): E78.00 - Pure hypercholesterolemia, unspecified; E78.0 - Pure hypercholesterolemia (6) Migraines Qualifiers: Migraine type: without aura Status migrainosus presence: without status migrainosus Intractability: not intractable Qualified Code(s): G43.009 - Migraine without aura, not intractable, without status migrainosus (7) Asthma Qualifiers: Asthma severity: mild Asthma persistence: intermittent Asthma complication type: unspecified Qualified Code(s): J45.20 - Mild intermittent asthma, uncomplicated <Adriana Koch - Last Filed: 11/27/18 14:53> (1) Asthma Qualifiers: Asthma severity: mild Asthma persistence: intermittent Asthma complication type: unspecified Qualified Code(s): J45.20 - Mild intermittent asthma, uncomplicated (3) Chest pain Qualifiers: Chest pain type: other chest pain Qualified Code(s): R07.89 - Other chest pain; R07.8 - Other chest pain (5) HTN (hypertension) Qualifiers: Hypertension type: essential hypertension Qualified Code(s): I10 - Essential (primary) hypertension (6) HLD (hyperlipidemia) Qualifiers: Hyperlipidemia type: pure hypercholesterolemia Qualified Code(s): E78.00 - Pure hypercholesterolemia, unspecified; E78.0 - Pure hypercholesterolemia (7) Migraines Qualifiers: Migraine type: without aura Status migrainosus presence: without status migrainosus Intractability: not intractable Qualified Code(s): G43.009 - Migraine without aura, not intractable, without status migrainosus (10) Leukocytosis Qualifiers: Leukocytosis type: unspecified Qualified Code(s): D72.829 - Elevated white blood cell count, unspecified
[2018-11-27 14:40] VITALS: BP 130/80
--- NOTE | 2018-11-27 15:20 | Discharge Summary ---
- NOTES TO OUTPATIENT PROVIDER Notes to Outpatient Provider: Ms Lennon was admitted for chest pain. Troponins negative. Nuclear stress test negative. Pt was started on ASA 81mg daily, Atorvastatin 40mg daily, Metoprolol 12.5mg BID, and a refill was provided for the patient's Lisinopril. Recommend follow up on HTN and HR Date of Encounter: 11/27/18 Time of Encounter: 09:00 - Discharge Diagnosis (1) Chest pain Priority: Primary Status: Inactive Qualifiers: Chest pain type: other chest pain Qualified Code(s): R07.89 - Other chest pain; R07.8 - Other chest pain (2) Asthma Priority: Secondary Status: Chronic Qualifiers: Asthma severity: mild Asthma persistence: intermittent Asthma complication type: unspecified Qualified Code(s): J45.20 - Mild intermittent a sthma, uncomplicated (3) Tobacco dependence Priority: Secondary Status: Chronic (4) Elevated d-dimer Priority: Secondary Status: Acute (5) HTN (hypertension) Priority: Secondary Status: Chronic Qualifiers: Hypertension type: essential hypertension Qualified Code(s): I10 - Essential (primary) hypertension (6) HLD (hyperlipidemia) Priority: Secondary Status: Chronic Qualifiers: Hyperlipidemia type: pure hypercholesterolemia Qualified Code(s): E78.00 - Pure hypercholesterolemia, unspecified; E78.0 - Pure hypercholesterolemia (7) Migraines Priority: Secondary Status: Chronic Qualifiers: Migraine type: without aura Status migrainosus presence: without status migrainosus Intractability: not intractable Qualified Code(s): G43.009 - Migraine without aura, not intractable, without status migrainosus (8) Anxiety and depression Priority: Secondary Status: Chronic (9) Leukocytosis Priority: Secondary Status: Acute Qualifiers: Leukocytosis type: unspecified Qualified Code(s): D72.829 - Elevated white blood cell count, unspecified Hospital course: Ms. Lennon is a 38 year old female that presented to the [facility] with a 3-day history of chest pain. The pain was described as intermittent and burning in the center of the chest. She also reported that it was worse than her typical indigestion. The chest pain was associated with diaphoresis, palpitations, nausea, SOB and a single episode of vomiting. Patient has a known history asthma, HTN, HLD, migraines, anxiety, depression, estrace use and current tobacco abuse. EKG from the ED revealed no ischemic changes. Initial troponins was negative. D dimer was elevated at 1032. CXR from the ED showed no acute abnormality. A CTA of the chest was obtained which was negative for pulmonary embolism. The patient was admitted for further managmenet and evaluation of chest pain. While admitted, bilateral lower extremity Doppler was negative for DVT or SVT. A nuclear stress test was performed due to lack of mobility (pt uses cane for ambulation) that showed no ischemia or infarct. Echocardiogram showed LVEF 60- 65% with mild left ventricular diastolic dysfunction, normal right ventricular structure function, and no significant valvular dysfunction or Pulmonary HTN. The patient's chest pain resolved during hospital day 1. Serial troponins remained negative. TSH was within normal limits. The patient was started on daily ASA 81mg, and Atorvastatin 40mg. The patient's ASCVD risk recommended high intensity statin therapy based on the lipid panel obtained. Daily 20mg Omeprazole was also initiated for possible GERD as cause of chest pain since she does report baseline indigestion. Throughout the hospital course the patient continued to have HTN which was refractory to hydralazine, but responsive to Lopressor. At time of admission the patient was advised to follow up with her PCP for further management of her HTN. Also recommended further evaluation and educated on the importance of compliance with CPAP for her VELASQUEZ. Prescriptions were provided for the ASA, Atorvastatin, as well as Metoprolol 12.5 BID, and a refill on the pt's home Lisinopril as she is about to establish with a new PCP and is out of this medication at home. Pt agreed to treatment plan and was discharged home. Discharge discussed with: patient, family, nurse - Time Spent with Patient Total time spent providing and/or coordinating discharge services: - Discharge Medications Prescriptions: New Aspirin Enteric Coated [Aspirin EC] 81 mg PO DAILY 30 Days #30 tablet. Metoprolol [Lopressor] 12.5 mg PO BID 30 Days #60 tablet Omeprazole [PriLOSEC] 20 mg PO DAILY@0630 30 Days #30 capsule. Atorvastatin [Lipitor] 40 mg PO HS 30 Days #30 tablet Continued Cholecalciferol (Vitamin D3) [Vitamin D3] 1,000 units PO QAM Gabapentin [Neurontin] 300 mg PO DAILY SUMAtriptan succinate [Imitrex] 50 mg PO Q2H PRN MDD 2 TABS/24 HOURS PRN Reason: Migraine Headache Trazodone HCl 100 mg PO HS Venlafaxine HCl [Venlafaxine HCl ER] 150 mg PO QPM Acetaminophen [Non-Aspirin Extra Strength] 500 mg PO Q6H PRN 7 Days #28 tablet PRN Reason: Mild To Moderate Pain Ipratropium/Albuterol Neb [Duoneb] 3 ml IH Q6HR PRN PRN Reason: COPD exacerbation Lisinopril [Zestril] 20 mg PO HS 30 Days #30 tablet HYDROcodone/Acet 5/325 mg [Bernard 5-325 mg] 1 tab PO BID PRN PRN Reason: Pain Discontinued Estradiol 2 mg PO QAM Home Medications: Cholecalciferol (Vitamin D3) [Vitamin D3] 1,000 units PO QAM 10/07/18 [History] Gabapentin [Neurontin] 300 mg PO DAILY 10/07/18 [History] SUMAtriptan succinate [Imitrex] 50 mg PO Q2H PRN MDD 2 TABS/24 HOURS 10/07/18 [History] Trazodone HCl 100 mg PO HS 10/07/18 [History] Venlafaxine HCl [Venlafaxine HCl ER] 150 mg PO QPM 10/07/18 [History] Acetaminophen [Non-Aspirin Extra Strength] 500 mg PO Q6H PRN 7 Days #28 tablet 10/08/18 [Rx] HYDROcodone/Acet 5/325 mg [Bernard 5-325 mg] 1 tab PO BID PRN 11/25/18 [History] Ipratropium/Albuterol Neb [Duoneb] 3 ml IH Q6HR PRN 11/26/18 [History] Aspirin Enteric Coated [Aspirin EC] 81 mg PO DAILY 30 Days #30 tablet. 11/27/18 [Rx] Atorvastatin [Lipitor] 40 mg PO HS 30 Days #30 tablet 11/27/18 [Rx] Lisinopril [Zestril] 20 mg PO HS 30 Days #30 tablet 11/27/18 [Rx] Metoprolol [Lopressor] 12.5 mg PO BID 30 Days #60 tablet 11/27/18 [Rx] Omeprazole [PriLOSEC] 20 mg PO DAILY@30 30 Days #30 capsule. 11/27/18 [Rx] Allergies/Adverse Reactions: Allergy/AdvReac Type Severity Reaction Status Date / Time Banana Allergy Rash Verified 11/25/18 20:01 Sulfa (Sulfonamide Allergy Rash, Verified 11/25/18 20:01 Antibiotics) Vomiting, Headache, Blotchy skin Date of admission: 11/26/18 01:39 Primary care physician: Nickie Caputo CNP - Constitutional Vitals: Temp Pulse Resp BP Pulse Ox 97.7 F 93 18 130/80 96 11/27/18 14:37 11/27/18 14:37 11/27/18 14:37 11/27/18 14:37 11/27/18 14:37 General appearance: Present: cooperative, mild distress, A&O X 3, morbidly obese, pleasant, answers questions appropriately Exam: General: well developed female in no acute distress Head: NCAT Eyes: PERRL, EOMI, sclera anicteric Neck: supple, trachea midline Lungs: CTA bilaterally. Non-labored breathing. No wheezes, rales, or rhonchi Heart: RRR +s1 +s2 No murmurs, clicks, rubs, or gallops GI: abdomen soft, non-tender, non-distended Extremities: warm, radial pulses palpable and symmetrical. No edema, cyanosis, or calf tenderness. Neuro: A&Ox3. No focal deficits. No speech difficulty or abnormality Skin: warm, dry, intact - Patient Status Disposition: Home, Self-Care Condition: Good Functional capacity at discharge: independent ambulation Overall status at discharge: patient is back to baseline - Discharge Instructions Instructions: Metoprolol (By mouth), Lisinopril (By mouth), Aspirin (By mouth), Omeprazole (By mouth), Atorvastatin (By mouth), Chest Pain (DC), Chronic Hypertension (DC), Hyperlipidemia (DC) Follow Up With: Nickie Caputo CNP [Primary Care Provider] - (Follow-up with PCP within five- seven days after discharge) - Diet and Activity Activity: increase activity as tolerated, resume usual activities as tolerated Diet: low fat, low cholesterol, low salt diet
== END 2018-11-27 16:47 | disposition home or self-care (01) ==
LOC: 2ANU → SUATTDRO 01:39
PROVIDERS: ADMIT Internal Medicine; ATTEND Student in an Organized Health Care Education/Training Program

== ENCOUNTER 2021-05-27 21:11 | Inpatient (IN) ==
[2021-05-27] MEDS ORDERED: Lidocaine -MPF 1% 5 ML AMPUL INFILT ONE (21:45)
[2021-05-27] MEDS ORDERED: Vancomycin 1,750 MG in 0.9 % Sodium Chloride 250 ML IVPB SCH ×2 (22:00→23:45)
[2021-05-27] MEDS ORDERED: Vancomycin 2,000 MG/520 ML IV.SOLN IVPB ONE (22:10)
[2021-05-27 22:32] LABS: Basophils % 0.2 %; Eosinophils # 0.1 K/mcL (0.0-0.6); Eosinophils % 0.4 %; Hematocrit 41.4 % (35.3-44.9); Hemoglobin 13.1 g/dL (11.5-15.4); Immature Granulocytes % 0.6 % (0-4); Lymphocytes # 1.9 K/mcL (0.6-4.6); Lymphocytes % 10.2 %; Mean Corpuscular HGB Conc 31.6 g/dL (31.6-35.5); Mean Corpuscular Hemoglobin 27.4 pg (28.0-33.3); Mean Corpuscular Volume 86.6 fL (83.0-100.0); Monocytes # 0.9 K/mcL (0.0-1.3); Monocytes % 4.9 %; Neutrophils # 15.5 K/mcL (1.6-8.9); Platelet Count 379 K/mcL (140-400); Red Blood Count 4.78 M/mcL (3.82-4.97); Red Cell Distribution Width 15.8 % (11.5-14.5); Segmented Neutrophils % 83.7 %; White Blood Count 18.5 K/mcL (4.3-11.1)
[2021-05-27] MEDS ORDERED: Morphine Sulfate 2 MG/ML SYRINGE IVP ONE (22:41)
[2021-05-27 22:50] LABS: BUN/Creatinine Ratio 16 (6-26); Blood Urea Nitrogen 11 mg/dL (6-20); Calcium 9.1 mg/dL (8.6-10.3); Carbon Dioxide 22 mEq/L (23-29); Chloride 102 mEq/L (98-107); Glucose 121 mg/dL (70-105); Osmolality,Calculated 279 (280-300); Potassium 3.6 mEq/L (3.5-5.1); Sodium 134 mEq/L (136-145); eGFR For African Americans > 60 (> 60); eGFR For Non-African Americans > 60 (> 60)
[2021-05-27] MEDS ORDERED: Ketorolac 30 MG/ML VIAL IVP ONE (22:55)
[2021-05-27] MEDS ORDERED: Piperacillin/Tazobactam 3.375 GM in 0.9 % Sodium Chloride Mini Bag 100 ML IVPB ONE (23:10)
[2021-05-27] MEDS: 0.9 % Sodium Chloride 1,000 ML IVC SCH (23:17)
[2021-05-27] MEDS ORDERED: Naloxone 0.4 MG/ML INJ IVP PRN (23:38)
[2021-05-27] MEDS ORDERED: Ondansetron 4 MG/2 ML VIAL IVP PRN (23:38)
[2021-05-27] MEDS ORDERED: Acetaminophen 325 MG TABLET PO PRN (23:38)
[2021-05-28] MEDS ORDERED: Morphine Sulfate 2 MG/ML SYRINGE IVP PRN ×2 (01:14→19:32)
[2021-05-28 01:37] LABS: Influenza A PCR Negative (Negative); Influenza B PCR Negative (Negative); Resp. Syncytial Virus PCR Negative (Negative)
[2021-05-28 01:38] LABS: SARS-CoV-2 by PCR (In House) Negative (Negative)
[2021-05-28] MEDS: 0.9 % Sodium Chloride 1,000 ML IVC SCH ×3 (02:02→13:45)
[2021-05-28 02:46] LABS: Basophils % 0.2 %; Eosinophils # 0.1 K/mcL (0.0-0.6); Eosinophils % 0.7 %; Hematocrit 34.7 % (35.3-44.9); Immature Granulocytes % 0.5 % (0-4); Lymphocytes # 2.7 K/mcL (0.6-4.6); Lymphocytes % 20.8 %; Mean Corpuscular HGB Conc 31.7 g/dL (31.6-35.5); Mean Corpuscular Hemoglobin 27.5 pg (28.0-33.3); Mean Corpuscular Volume 86.8 fL (83.0-100.0); Mean Platelet Volume 9.9 fL (9.4-12.4); Monocytes # 0.5 K/mcL (0.0-1.3); Monocytes % 4.1 %; Neutrophils # 9.4 K/mcL (1.6-8.9); Platelet Count 302 K/mcL (140-400); Red Cell Distribution Width 15.7 % (11.5-14.5); Segmented Neutrophils % 73.7 %; White Blood Count 12.8 K/mcL (4.3-11.1)
[2021-05-28 02:53] LABS: INR 1.2; Prothrombin Time 13.8 Seconds (9.4-12.1)
[2021-05-28 03:08] LABS: Alanine Aminotransferase 108 Units/L (7-52); Albumin 3.6 g/dL (3.5-5.7); Albumin/Globulin Ratio 1.4 (1.1-2.2); Alkaline Phosphatase 97 Units/L (34-104); Aspartate Amino Transferase 303 Units/L (13-39); BUN/Creatinine Ratio 17 (6-26); Bilirubin,Direct 0.3 mg/dL (0.0-0.2); Bilirubin,Indirect 0.2 mg/dL (0.0-1.0); Bilirubin,Total 0.5 mg/dL (0.3-1.0); Blood Urea Nitrogen 12 mg/dL (6-20); C-Reactive Protein 61 mg/L (Less than 10); Carbon Dioxide 20 mEq/L (23-29); Chloride 107 mEq/L (98-107); Globulin 2.6 g/dL (2.4-3.5); Glucose 99 mg/dL (70-105); Magnesium 1.6 mg/dL (1.6-2.6); Osmolality,Calculated 280 (280-300); Potassium 3.2 mEq/L (3.5-5.1); Sodium 135 mEq/L (136-145); Total Protein 6.2 g/dL (6.4-8.9); eGFR For African Americans > 60 (> 60); eGFR For Non-African Americans > 60 (> 60)
[2021-05-28 03:20] LABS: Thyroid Stimulating Hormone 0.694 mcIU/mL (0.340-5.600)
[2021-05-28 04:41] LABS: Estimated Average Glucose 140 mg/dl; Hemoglobin A1C 6.5 %
[2021-05-28 06:42] LABS: Bacteria,Urine Few per hpf (None-Few); Bilirubin,Urine Negative (Negative); Blood,Urine Negative (Negative); Clarity,Urine Turbid (Clear); Color,Urine Light-Yellow (Yellow); Glucose,Urine (UA) Normal (Normal); Ketones,Urine Negative (Negative); Leukocyte Esterase,Urine Negative (Negative); Mucus,Urine Few per lpf (None-Few); Nitrite,Urine Negative (Negative); Protein,Urine Trace mg/dL (Neg-Trace); RBC,Urine 0-3 per hpf (0-3); Specific Gravity,Urine 1.011 (1.010-1.025); Squamous Epithelial Cell,Urine Few per hpf (None-Few); Urobilinogen,Urine Normal (Normal)
[2021-05-28] MEDS: Piperacillin/Tazobactam 3.375 GM in 0.9 % Sodium Chloride Mini Bag 100 ML IVPB SCH ×2 (08:06→15:50)
[2021-05-28] MEDS ORDERED: Vancomycin 1,500 MG/265 ML IV.SOLN IVPB SCH (11:00)
[2021-05-28] MEDS ORDERED: Vancomycin 1,250 MG/262.5 ML IV.SOLN IVPB SCH (11:00)
[2021-05-28] MEDS ORDERED: *HR* FentaNYL (PF) 100 MCG/2 ML VIAL ONE ×2 (16:48→17:38)
[2021-05-28] MEDS ORDERED: *HR* Propofol 200 MG/20 ML VIAL IVP ONE (16:48)
[2021-05-28] MEDS ORDERED: Lidocaine -MPF 2% 5 ML VIAL ONE (16:49)
[2021-05-28] MEDS ORDERED: *HR* FentaNYL (PF) 100 MCG/2 ML VIAL IVP PRN (16:55)
[2021-05-28] MEDS ORDERED: Lidocaine/EPI 1:100k 1% 30 ML VIAL ONE (16:56)
[2021-05-28] MEDS ORDERED: Dextrose Gel 15 GM/37.5 ML TUBE PO PRN ×4 (17:54→19:32)
[2021-05-28] MEDS ORDERED: *HR* Dextrose 50 % in Water (Syg) 50 ML SYRINGE IVP PRN ×2 (17:54→19:32)
[2021-05-28] MEDS ORDERED: D5% in Water 1,000 ML IVC PRN ×2 (17:54→19:32)
[2021-05-28] MEDS ORDERED: Ketamine *HR* 500 MG/10 ML MDV ONE (17:56)
[2021-05-28] MEDS ORDERED: Ondansetron 4 MG/2 ML VIAL ONE (18:00)
[2021-05-28] MEDS ORDERED: Insulin LISPRO 300 UNITS/3 ML VIAL SUBQ SCH ×2 (18:00→21:00)
[2021-05-28] MEDS ORDERED: *HR* Labetalol 20 MG/4 ML SYRINGE IVP ONE (18:05)
[2021-05-28] MEDS ORDERED: Ipratropium/Albuterol Neb 3 ML IH PRN ×2 (19:32)
[2021-05-28] MEDS ORDERED: Acetaminophen 325 MG TABLET PO PRN (19:32)
[2021-05-28] MEDS ORDERED: Naloxone 0.4 MG/ML INJ IVP PRN (19:32)
[2021-05-28 20:47] LABS: Acetaminophen < 10 mcg/mL (10-20); Alanine Aminotransferase 172 Units/L (7-52); Albumin 3.4 g/dL (3.5-5.7); Albumin/Globulin Ratio 1.3 (1.1-2.2); Alkaline Phosphatase 137 Units/L (34-104); Aspartate Amino Transferase 181 Units/L (13-39); Bilirubin,Direct 0.1 mg/dL (0.0-0.2); Bilirubin,Indirect 0.4 mg/dL (0.0-1.0); Bilirubin,Total 0.5 mg/dL (0.3-1.0); Globulin 2.7 g/dL (2.4-3.5); Total Protein 6.1 g/dL (6.4-8.9)
[2021-05-28] MEDS: Ondansetron 4 MG/2 ML VIAL IVP PRN (22:55)
[2021-05-28] MEDS: Vancomycin 1,250 MG/262.5 ML IV.SOLN IVPB SCH (23:17)
[2021-05-28] MEDS: Insulin LISPRO 300 UNITS/3 ML VIAL SUBQ SCH (23:20)
[2021-05-29] MEDS: Piperacillin/Tazobactam 3.375 GM in 0.9 % Sodium Chloride Mini Bag 100 ML IVPB SCH ×3 (01:35→16:11)
[2021-05-29 05:11] LABS: Basophils % 0.2 %; Eosinophils % 0.1 %; Hematocrit 32.7 % (35.3-44.9); Hemoglobin 10.4 g/dL (11.5-15.4); Immature Granulocytes % 0.5 % (0-4); Lymphocytes # 1.6 K/mcL (0.6-4.6); Lymphocytes % 11.9 %; Mean Corpuscular HGB Conc 31.8 g/dL (31.6-35.5); Mean Corpuscular Hemoglobin 27.7 pg (28.0-33.3); Mean Platelet Volume 10.7 fL (9.4-12.4); Monocytes # 0.6 K/mcL (0.0-1.3); Monocytes % 4.3 %; Neutrophils # 10.9 K/mcL (1.6-8.9); Platelet Count 336 K/mcL (140-400); Red Blood Count 3.76 M/mcL (3.82-4.97); Red Cell Distribution Width 16.3 % (11.5-14.5); White Blood Count 13.1 K/mcL (4.3-11.1)
[2021-05-29 05:33] LABS: Albumin 3.4 g/dL (3.5-5.7); Albumin/Globulin Ratio 1.2 (1.1-2.2); Bilirubin,Direct 0.1 mg/dL (0.0-0.2); Bilirubin,Indirect 0.2 mg/dL (0.0-1.0); Bilirubin,Total 0.3 mg/dL (0.3-1.0); Globulin 2.8 g/dL (2.4-3.5); Total Protein 6.2 g/dL (6.4-8.9)
[2021-05-29 05:34] LABS: BUN/Creatinine Ratio 12 (6-26); Blood Urea Nitrogen 7 mg/dL (6-20); Calcium 8.5 mg/dL (8.6-10.3); Carbon Dioxide 22 mEq/L (23-29); Chloride 113 mEq/L (98-107); Glucose 149 mg/dL (70-105); Osmolality,Calculated 291 (280-300); Potassium 3.9 mEq/L (3.5-5.1); Sodium 140 mEq/L (136-145); eGFR For African Americans > 60 (> 60); eGFR For Non-African Americans > 60 (> 60)
[2021-05-29 07:45] LABS: Hepatitis B Surface Antigen Nonreactive (Nonreactive)
[2021-05-29 08:14] LABS: Hepatitis C Virus Antibody Nonreactive (Nonreactive)
[2021-05-29 08:15] LABS: Hepatitis B Core IgM Nonreactive (Nonreactive)
[2021-05-29 08:16] LABS: Hepatitis A Antibody IgM Nonreactive (Nonreactive)
[2021-05-29] MEDS: Insulin LISPRO 300 UNITS/3 ML VIAL SUBQ SCH ×4 (08:22→20:24)
[2021-05-29] MEDS: Nicotine 14 MG PATCH.TD24 TD SCH (08:23)
[2021-05-29] MEDS ORDERED: Nicotine 14 MG PATCH.TD24 TD SCH (09:00)
[2021-05-29] MEDS: Ondansetron 4 MG/2 ML VIAL IVP PRN ×2 (09:23→20:28)
[2021-05-29] MEDS: Vancomycin 1,250 MG/262.5 ML IV.SOLN IVPB SCH (10:56)
[2021-05-29] MEDS ORDERED: Vancomycin 500 MG in 0.9 % Sodium Chloride Mini Bag 100 ML IVPB ONE (11:18)
[2021-05-29] MEDS ORDERED: Ketorolac 30 MG/ML VIAL IVP ONE (17:21)
[2021-05-29] MEDS: Topiramate 25 MG TABLET PO SCH (20:23)
[2021-05-29] MEDS ORDERED: traZODone 50 MG TABLET PO SCH (21:00)
[2021-05-29] MEDS ORDERED: Venlafaxine XR (24 HR) 150 MG CAP.ER.24H PO SCH (21:00)
[2021-05-30] MEDS: Vancomycin 1,750 MG/517.5 ML IV.SOLN IVPB SCH ×2 (00:18→13:28)
[2021-05-30] MEDS: Piperacillin/Tazobactam 3.375 GM in 0.9 % Sodium Chloride Mini Bag 100 ML IVPB SCH ×2 (00:18→08:01)
[2021-05-30 05:17] LABS: Basophils % 0.3 %; Eosinophils # 0.4 K/mcL (0.0-0.6); Eosinophils % 3.4 %; Hematocrit 33.5 % (35.3-44.9); Hemoglobin 10.2 g/dL (11.5-15.4); Immature Granulocytes % 0.3 % (0-4); Lymphocytes # 4.7 K/mcL (0.6-4.6); Lymphocytes % 39.3 %; Mean Corpuscular HGB Conc 30.4 g/dL (31.6-35.5); Mean Corpuscular Hemoglobin 26.9 pg (28.0-33.3); Mean Corpuscular Volume 88.4 fL (83.0-100.0); Mean Platelet Volume 10.3 fL (9.4-12.4); Monocytes # 0.8 K/mcL (0.0-1.3); Monocytes % 6.6 %; Platelet Count 347 K/mcL (140-400); Red Blood Count 3.79 M/mcL (3.82-4.97); Red Cell Distribution Width 16.4 % (11.5-14.5); Segmented Neutrophils % 50.1 %
[2021-05-30 05:39] LABS: Alanine Aminotransferase 103 Units/L (7-52); Albumin 3.4 g/dL (3.5-5.7); Albumin/Globulin Ratio 1.2 (1.1-2.2); Alkaline Phosphatase 107 Units/L (34-104); Aspartate Amino Transferase 40 Units/L (13-39); BUN/Creatinine Ratio 9 (6-26); Bilirubin,Direct 0.1 mg/dL (0.0-0.2); Bilirubin,Indirect 0.1 mg/dL (0.0-1.0); Bilirubin,Total 0.2 mg/dL (0.3-1.0); Blood Urea Nitrogen 7 mg/dL (6-20); Calcium 8.6 mg/dL (8.6-10.3); Carbon Dioxide 21 mEq/L (23-29); Chloride 114 mEq/L (98-107); Globulin 2.8 g/dL (2.4-3.5); Glucose 99 mg/dL (70-105); Magnesium 1.9 mg/dL (1.6-2.6); Osmolality,Calculated 294 (280-300); Potassium 3.4 mEq/L (3.5-5.1); Sodium 143 mEq/L (136-145); Total Protein 6.2 g/dL (6.4-8.9); eGFR For African Americans > 60 (> 60); eGFR For Non-African Americans > 60 (> 60)
[2021-05-30] MEDS: Ondansetron 4 MG/2 ML VIAL IVP PRN (05:45)
[2021-05-30 07:28] VITALS: BP 133/78; PULSE 80; TEMP 97.7; O2SAT 94
[2021-05-30] MEDS: Insulin LISPRO 300 UNITS/3 ML VIAL SUBQ SCH ×2 (07:52→13:28)
[2021-05-30] MEDS: Topiramate 25 MG TABLET PO SCH (08:03)
[2021-05-30] MEDS: Nicotine 14 MG PATCH.TD24 TD SCH (08:03)
[2021-05-30] MEDS ORDERED: *HR* OxyCODONE/APAP 5/325 TABLET PO PRN (08:41)
[2021-05-30] MEDS ORDERED: Loratadine 10 MG TABLET PO SCH (09:00)
[2021-05-30] MEDS ORDERED: Aspirin Enteric Coated 81 MG Tablet PO SCH (09:00)
== END 2021-05-30 13:29 | disposition home or self-care (01) ==
LOC: 4WAOSI 21:11 → EMEROOARM 21:11 → SUATTDRO 23:44 → 4WAOSI 05-28 00:05
PROVIDERS: ADMIT Internal Medicine; ATTEND Pharmacist